=== PATIENT | male | born 1980 | race Two or more races ===

== ENCOUNTER 2016-11-22 07:35 | Emergency (ER) | payer BC, OTHER ==
[~2016-11-22] VITALS: Ht 175.3 cm; Wt 136.1 kg
[2016-11-22 08:17] VITALS: BP 132/93
[2016-11-22] MEDS ORDERED: cefTRIAXone SOD 1,000 MG VL IM ONE (08:30)
[2016-11-22] MEDS ORDERED: methylPREDNISolone SOD SUCC 125 MG/2 ML VL IM ONE (08:30)
== END 2016-11-22 09:09 | disposition home or self-care (01) ==
LOC: ER 07:35
DX: J03.90 Acute tonsillitis, unspecified (principal); K12.2 Cellulitis and abscess of mouth
CPT/HCPCS: 96372; 99284; J0696; J2930

== ENCOUNTER 2018-12-10 08:40 | Emergency (ER) | payer BC ==
[~2018-12-10] VITALS: Ht 175.3 cm; Wt 136.1 kg
[2018-12-10 09:43] VITALS: BP 117/76
[2018-12-10] MEDS ORDERED: ALBUTEROL SULF 2.5 MG/0.5ML(0.5%) NEB SOLN NEB ONE (10:00)
[2018-12-10] MEDS ORDERED: IPRATROPIUM BROM 0.5 MG/2.5ML INH SOL NEB ONE (10:00)
== END 2018-12-10 10:45 | disposition home or self-care (01) ==
LOC: ER 08:40
DX: J20.9 Acute bronchitis, unspecified (principal)
CPT/HCPCS: 71046; 94640; 99283; J7611; J7644